=== PATIENT | male | born 1940 | race Caucasian/White ===

== ENCOUNTER → 2020-07-30 18:34 | Outpatient (CLI) | payer MEDICARE ==
[2020-07-30 18:44] LABS: BASOPHILS 0.4 % (0-2); EOSINOPHILS 5.8 % (0-7); HEMATOCRIT 39.6 % (42.0-54.0); IMMATURE GRANULOCYTES 0.7 % (0-5); LYMPHOCYTE ABS# 1.53 10x3/uL (1.32-3.57); LYMPHOCYTES 20.6 % (15-50); MCHC 32.8 g/dL (31.0-37.0); MCV 94.3 fL (80.0-100.0); MEAN PLATELET VOLUME 11.4 fL (7.4-10.4); MONOCYTES 6.6 % (2-11); NEUTROPHIL ABS# 4.91 10x3/uL (1.78-5.38); NEUTROPHILS 65.9 % (40-80); PLATELET COUNT 329 10x3/uL (130-400); RDW 15.8 % (11.5-14.5); WBC 7.4 10x3/uL (4.8-10.8)
[2020-07-30 19:04] LABS: ALKALINE PHOSPHATASE 144 U/L (30-120); ALT (SGPT) 16 U/L (10-68); BILIRUBIN - TOTAL 0.13 mg/dL (0.2-1.3); CALC OSMOLALITY 292 mosm/kg (275-300); CALCIUM 8.9 mg/dL (8.5-10.1); CARBON DIOXIDE 28.8 mmol/L (21.0-32.0); CHLORIDE - SERUM 108 mmol/L (98-107); CREATININE - SERUM 0.9 mg/dL (0.6-1.3); GLUCOSE 93 mg/dL (74-106); POTASSIUM - SERUM 5.1 mmol/L (3.5-5.1); PROTEIN - SERUM 5.9 g/dL (6.4-8.2); SODIUM 144 mmol/L (136-145); THYROID STIMULATING HORMONE 2.47 uIU/mL (0.36-3.74); UREA NITROGEN 29 mg/dL (7-18); eGFR NON AFRICAN AMERICAN 86 mL/min (90-120)
== END | disposition home or self-care (01) ==
LOC: D.LABREF 18:34
PROVIDERS: ATTEND Family Medicine
DX: C85.90 Non-Hodgkin lymphoma, unspecified, unspecified site (principal)

== ENCOUNTER → 2020-08-03 18:08 | Outpatient (CLI) | payer MEDICARE ==
[2020-08-03 19:16] LABS: BILIRUBIN NEGATIVE (NEGATIVE); KETONE NEGATIVE (NEGATIVE); NITRITE POSITIVE (NEGATIVE); UROBILINOGEN NORMAL mg/dL (< 2)
[2020-08-03 19:18] LABS: BACTERIA MODERATE HPF (NONE SEEN); SQUAMOUS EPITHELIAL NONE SEEN HPF (0-4)
== END | disposition home or self-care (01) ==
LOC: D.LABREF 18:08
PROVIDERS: ATTEND Family Medicine
DX: N39.0 Urinary tract infection, site not specified (principal)

== ENCOUNTER → 2020-08-27 17:32 | Outpatient (CLI) | payer MEDICARE ==
[2020-08-27 19:04] LABS: BASOPHILS 0.2 % (0-2); EOSINOPHILS 6.5 % (0-7); HEMATOCRIT 35.8 % (42.0-54.0); HEMOGLOBIN 11.8 g/dL (13.5-17.5); IMMATURE GRANULOCYTES 0.2 % (0-5); LYMPHOCYTE ABS# 1.55 10x3/uL (1.32-3.57); LYMPHOCYTES 28.8 % (15-50); MCH 30.3 pg (26.0-34.0); MCV 91.8 fL (80.0-100.0); MEAN PLATELET VOLUME 10.2 fL (7.4-10.4); MONOCYTES 7.1 % (2-11); NEUTROPHIL ABS# 3.08 10x3/uL (1.78-5.38); NEUTROPHILS 57.2 % (40-80); PLATELET COUNT 354 10x3/uL (130-400); RDW 15.5 % (11.5-14.5); WBC 5.4 10x3/uL (4.8-10.8)
== END | disposition home or self-care (01) ==
LOC: D.LABREF 17:32
PROVIDERS: ATTEND Family Medicine
DX: G80.9 Cerebral palsy, unspecified (principal); N17.9 Acute kidney failure, unspecified

== ENCOUNTER → 2020-08-28 11:04 | Outpatient (CLI) | payer MEDICARE ==
[2020-08-28 11:23] LABS: BASOPHILS 0.2 % (0-2); EOSINOPHILS 5.9 % (0-7); IMMATURE GRANULOCYTES 0.4 % (0-5); LYMPHOCYTE ABS# 1.74 10x3/uL (1.32-3.57); LYMPHOCYTES 32.3 % (15-50); MCHC 32.4 g/dL (31.0-37.0); MCV 92.5 fL (80.0-100.0); MEAN PLATELET VOLUME 10.3 fL (7.4-10.4); MONOCYTES 8.7 % (2-11); NEUTROPHIL ABS# 2.82 10x3/uL (1.78-5.38); NEUTROPHILS 52.5 % (40-80); PLATELET COUNT 384 10x3/uL (130-400); RDW 15.6 % (11.5-14.5); WBC 5.4 10x3/uL (4.8-10.8)
[2020-08-28 11:33] LABS: ALBUMIN 2.7 g/dL (3.4-5.0); ALKALINE PHOSPHATASE 143 U/L (30-120); ALT (SGPT) 16 U/L (10-68); BILIRUBIN - TOTAL 0.14 mg/dL (0.2-1.3); CALC OSMOLALITY 289 mosm/kg (275-300); CALCIUM 8.6 mg/dL (8.5-10.1); CARBON DIOXIDE 29.6 mmol/L (21.0-32.0); CHLORIDE - SERUM 108 mmol/L (98-107); CREATININE - SERUM 0.9 mg/dL (0.6-1.3); GLUCOSE 90 mg/dL (74-106); POTASSIUM - SERUM 4.4 mmol/L (3.5-5.1); PROTEIN - SERUM 5.5 g/dL (6.4-8.2); SODIUM 143 mmol/L (136-145); UREA NITROGEN 27 mg/dL (7-18); eGFR NON AFRICAN AMERICAN 86 mL/min (90-120)
== END | disposition home or self-care (01) ==
LOC: D.LABREF 11:04
PROVIDERS: ATTEND Family Medicine
DX: N17.9 Acute kidney failure, unspecified (principal)

== ENCOUNTER → 2020-09-08 19:34 | Outpatient (CLI) | payer MEDICARE ==
[2020-09-08 20:22] LABS: THYROID STIMULATING HORMONE 4.84 uIU/mL (0.36-3.74); VALPROIC ACID (DEPAKOTE) 19.6 ug/mL (50.0-100.0)
== END | disposition home or self-care (01) ==
LOC: D.LABREF 19:34
PROVIDERS: ATTEND Family Medicine
DX: Z79.899 Other long term (current) drug therapy (principal); Z79.890 Hormone replacement therapy

== ENCOUNTER → 2020-09-24 16:52 | Outpatient (CLI) | payer MEDICARE ==
[2020-09-24 18:22] LABS: HEMATOCRIT 40.1 % (42.0-54.0); MCH 29.8 pg (26.0-34.0); MCHC 32.5 g/dL (31.0-37.0); MCV 91.8 fL (80.0-100.0); MEAN PLATELET VOLUME 8.7 fL (7.4-10.4); PLATELET COUNT 323 10x3/uL (130-400); RBC 4.36 10x6/uL (4.20-6.10); RDW 15.4 % (11.5-14.5)
[2020-09-24 18:35] LABS: ALBUMIN 2.9 g/dL (3.4-5.0); ALKALINE PHOSPHATASE 146 U/L (30-120); ALT (SGPT) 20 U/L (10-68); BILIRUBIN - TOTAL 0.17 mg/dL (0.2-1.3); CALC OSMOLALITY 290 mosm/kg (275-300); CALCIUM 8.7 mg/dL (8.5-10.1); CARBON DIOXIDE 27.2 mmol/L (21.0-32.0); CHLORIDE - SERUM 109 mmol/L (98-107); CREATININE - SERUM 0.8 mg/dL (0.6-1.3); GLUCOSE 89 mg/dL (74-106); PROTEIN - SERUM 5.6 g/dL (6.4-8.2); SODIUM 144 mmol/L (136-145); UREA NITROGEN 26 mg/dL (7-18); eGFR NON AFRICAN AMERICAN > 90 mL/min (90-120)
[2020-09-24 18:46] LABS: BACTERIA FEW HPF (<MOD); BILIRUBIN NEGATIVE (NEGATIVE); KETONE NEGATIVE mg/dL (< 1+); NITRITE POSITIVE (NEGATIVE); PH 8.5 (5.0-8.0); UROBILINOGEN NORMAL mg/dL (< 2); WHITE CELLS - URINE 71 HPF (0-1)
[2020-09-24 19:58] LABS: EOSINOPHILS 2 % (0-7); LYMPHOCYTES 47 % (15-50); MONOCYTES 11 % (2-11); NEUTROPHILS 40 % (40-80); PLATELET ESTIMATE NORMAL
== END | disposition home or self-care (01) ==
LOC: D.LABREF 16:52
PROVIDERS: ATTEND Family Medicine
DX: R33.9 Retention of urine, unspecified (principal); R82.998 Other abnormal findings in urine